=== PATIENT | female | born 1995 ===

== ENCOUNTER 2018-02-06 10:18 | Emergency (ER) | payer OTHER ==
[~2018-02-06] VITALS: Ht 167.6 cm; Wt 126.5 kg
[2018-02-06] MEDS ORDERED: IBUP600 PO (10:49)
[2018-02-06] MEDS ORDERED: Amoxicillin500 MG PO (10:49)
== END 2018-02-06 10:58 | disposition home or self-care (01) ==
LOC: ER 10:18
DX: H66.91 Otitis media, unspecified, right ear (principal)
CPT/HCPCS: 99282